=== PATIENT | female | born 2000 | race Caucasian/White ===

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

== ENCOUNTER 2020-07-31 18:32 | Emergency (ER) | payer MEDICAID ==
[2020-07-31 18:38] VITALS: BP 146/91
[2020-07-31] MEDS ORDERED: AMOX/CLAV 875 MG/125 MG TABLET PO STA (18:42)
--- NOTE | 2020-07-31 18:46 | ED Physician Documentation ---
PD HPI WOUND RECHECK - Stated complaint Stated Complaint: CAT BITE - LT HAND - Chief complaint Chief Complaint: Wound - Histroy obtained from History obtained from: Patient - Additional information Additional information: 20-year-old right-handed woman is up-to-date on tetanus and was bitten several times by her own fully immunized cat at home about a couple of hours ago. 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 HEENT: Other Psych: None Musculoskeletal: None Derm: None - Past Surgical History Past Surgical History: Yes - Present Medications Home Medications: Ambulatory Orders Medication Instructions Recorded Confirmed Levonorgestrel-Ethin Estradiol 1 each PO 03/27/19 03/27/19 [Setlakin 0.15 mg-0.03 mg Tab] Dicyclomine HCl 10 mg PO Q6H PRN #15 capsule 08/19/19 Diphenoxylate/Atropine [Lomotil] 1 each PO QID PRN #12 tablet 08/19/19 Famotidine 20 mg PO DAILY #15 tablet 08/19/19 Ondansetron Odt [Zofran] 4 mg TL Q6H PRN #10 tablet 08/19/19 Amox/Clav 875/125 [Augmentin] 1 each PO Q12H #14 tablet 07/31/20 - Allergies Allergies/Adverse Reactions: Allergies Allergy/AdvReac Type Severity Reaction Status Date / Time No Known Drug Allergies Allergy Verified 07/31/20 18:36 - Social History Does the pt smoke?: No Smoking Status: Never smoker Does the pt drink ETOH?: No Does the pt have substance abuse?: No - Immunizations Immunizations are current?: Yes - POLST Patient has POLST: No PD ED PE NORMAL - Vitals Vital signs reviewed: Yes - General General: Alert and oriented X 3, No acute distress - Extremities Extremities: Other (She has several puncture wounds near the left first MCP and proximal phalanx without bony tenderness or limited range of motion.) Results - Vitals Vitals: Vital Signs - 24 hr 07/31/20 18:36 Temperature 36.8 C Heart Rate 70 Respiratory 16 Rate Blood Pressure 146/91 H O2 Saturation 98 Oxygen O2 Source Room air Departure - Departure Disposition: 01 Home, Self Care Clinical Impression: Cat bite Qualifiers: Encounter type: initial encounter Qualified Code(s): W55.01XA - Bitten by cat, initial encounter Condition: Good Record reviewed to determine appropriate education?: Yes Instructions: ED Bite Animal General Prescriptions: Amox/Clav 875/125 [Augmentin] 1 each PO Q12H #14 tablet Comments: Come back for any signs of infection which would include: Redness, swelling, drainage, increased pain, or fevers. You can wash it soap and water. Keep it covered and moist with bacitracin ointment which is available over the counter; avoid neosporin.
== END 2020-07-31 18:52 | disposition home or self-care (01) ==
LOC: ED 18:32
DX: S61.432A Puncture wound without foreign body of left hand, initial encounter (principal); W55.01XA Bitten by cat, initial encounter
CPT/HCPCS: 99282; 99283; A9270

== ENCOUNTER 2020-08-01 12:04 | Emergency (ER) | payer MEDICAID ==
[2020-08-01] MEDS ORDERED: AMOX/CLAV 875 MG/125 MG TABLET PO STA (12:20)
[2020-08-01] MEDS ORDERED: NAPROXEN 250 MG TABLET PO STA (12:20)
--- NOTE | 2020-08-01 12:22 | ED Physician Documentation ---
PD HPI WOUND RECHECK - Stated complaint Stated Complaint: CAT BITE L HAND - Chief complaint Chief Complaint: General - Histroy obtained from History obtained from: Patient - History of Present Illness Location: Left Hand (Patient with a cat bite yesterday and was given a dose of Augmentin here in the ER. She states her pharmacy was closed today and so unable to get the prescription. She did place the physical prescription in the night box so does not still have it. 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 : None HEENT: Other Psych: None Musculoskeletal: None Derm: None - Past Surgical History Past Surgical History: Yes - Present Medications Home Medications: Ambulatory Orders Medication Instructions Recorded Confirmed Levonorgestrel-Ethin Estradiol 1 each PO 03/27/19 03/27/19 [Setlakin 0.15 mg-0.03 mg Tab] Dicyclomine HCl 10 mg PO Q6H PRN #15 capsule 08/19/19 Diphenoxylate/Atropine [Lomotil] 1 each PO QID PRN #12 tablet 08/19/19 Famotidine 20 mg PO DAILY #15 tablet 08/19/19 Ondansetron Odt [Zofran] 4 mg TL Q6H PRN #10 tablet 08/19/19 Amox/Clav 875/125 [Augmentin] 1 each PO Q12H #14 tablet 07/31/20 Amox/Clav 875/125 [Augmentin] 1 each PO Q12H #14 tablet 08/01/20 Naproxen 500 mg PO BID #20 tablet 08/01/20 - Allergies Allergies/Adverse Reactions: Allergies Allergy/AdvReac Type Severity Reaction Status Date / Time No Known Drug Allergies Allergy Verified 08/01/20 12:08 - Social History Does the pt smoke?: No Smoking Status: Never smoker Does the pt drink ETOH?: No Does the pt have substance abuse?: No - Immunizations Immunizations are current?: Yes - POLST Patient has POLST: No PD ED PE NORMAL - Vitals Vital signs reviewed: Yes - General General: Alert and oriented X 3, No acute distress, Well developed/nourished - Derm Derm: Normal color, Warm and dry - Extremities Extremities: Other (The left thenar eminence and the dorsal of the base of the thumb with puncture wounds. The palmar aspect has redness and swelling with a point of whiteness but no underlying fluctuance. There is no tenderness in the forearm. Range of motion of the fingers does not cause pain.) - Neuro Neuro: No motor deficit, No sensory deficit Results - Vitals Vitals: Vital Signs - 24 hr 08/01/20 08/01/20 12:08 12:30 Temperature 36.8 C 36.9 C Heart Rate 75 71 Respiratory 20 18 Rate Blood Pressure 149/77 H 141/83 H O2 Saturation 97 100 Oxygen O2 Source Room air PD MEDICAL DECISION MAKING - ED course Complexity details: considered differential (Mild early infection but she was unable to continue her antibiotics as the pharmacy she dropped the prescription that is closed today. I can print a new wound and give her a dose here. No tenosynovitic symptoms.), d/w patient Departure - Departure Disposition: 01 Home, Self Care Clinical Impression: Encounter for wound re-check Cat bite of left hand with infection Qualifiers: Encounter type: subsequent encounter Qualified Code(s): S61.452D - Open bite of left hand, subsequent encounter Condition: Stable Record reviewed to determine appropriate education?: Yes Instructions: ED Bite Cat Prescriptions: Amox/Clav 875/125 [Augmentin] 1 each PO Q12H #14 tablet Naproxen 500 mg PO BID #20 tablet Comments: Warm moist compresses or warm soaks a few times a day to promote blood flow to the area and promote drainage. Continue the Augmentin twice daily for the next week. Add naproxen anti-in flammatory 2-3 times a day. To that add Tylenol if needed for pain. Recheck if not improving over the next couple of days and return if worsening still. Discharge Date/Time: 08/01/20 12:30
[2020-08-01 12:31] VITALS: BP 141/83
== END 2020-08-01 12:30 | disposition home or self-care (01) ==
LOC: ED 12:04
DX: S61.432A Puncture wound without foreign body of left hand, initial encounter (principal); W55.01XA Bitten by cat, initial encounter
CPT/HCPCS: 99282; 99283; A9270

== ENCOUNTER 2020-10-01 18:21 | Emergency (ER) | payer MEDICAID ==
[2020-10-01 18:44] VITALS: BP 169/93
[2020-10-01] MEDS ORDERED: predniSONE 20 MG TABLET PO STA (18:58)
[2020-10-01] MEDS ORDERED: diphenhydrAMINE 25 MG CAPSULE PO STA (18:58)
--- NOTE | 2020-10-01 19:01 | ED Physician Documentation ---
History of Present Illness - Stated complaint Stated Complaint: C+, HIVES - Chief complaint Chief Complaint: Wound - History obtained from History obtained from: Patient - History of Present Illness Timing: Yesterday Pain level max: 0 Pain level now: 0 - Additonal information Additional information: 20-year-old female presents to the emergency department with diffuse urticaria for the past 24 hours. Unclear etiology. No new soaps, detergents, medications, foods, supplements, antibiotics. Nothing makes it better or worse. Has not taken anything for this. 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 HEENT: Other Psych: None Musculoskeletal: None Derm: None - Past Surgical History Past Surgical History: Yes - Present Medications Home Medications: Ambulatory Orders Medication Instructions Recorded Confirmed Levonorgestrel-Ethin Estradiol 1 each PO 03/27/19 03/27/19 [Setlakin 0.15 mg-0.03 mg Tab] Dicyclomine HCl 10 mg PO Q6H PRN #15 capsule 08/19/19 Diphenoxylate/Atropine [Lomotil] 1 each PO QID PRN #12 tablet 08/19/19 Famotidine 20 mg PO DAILY #15 tablet 08/19/19 Ondansetron Odt [Zofran] 4 mg TL Q6H PRN #10 tablet 08/19/19 Amox/Clav 875/125 [Augmentin] 1 each PO Q12H #14 tablet 07/31/20 Amox/Clav 875/125 [Augmentin] 1 each PO Q12H #14 tablet 08/01/20 Naproxen 500 mg PO BID #20 tablet 08/01/20 predniSONE [Deltasone] 10 mg PO [id number] #42 tab 10/01/20 - Allergies Allergies/Adverse Reactions: Allergies Allergy/AdvReac Type Severity Reaction Status Date / Time No Known Drug Allergies Allergy Verified 10/01/20 18:44 - Social History Does the pt smoke?: No Smoking Status: Never smoker Does the pt drink ETOH?: No Does the pt have substance abuse?: No - Immunizations Immunizations are current?: Yes - POLST Patient has POLST: No PD ED PE NORMAL - Vitals Vital signs reviewed: Yes - General General: Alert and oriented X 3, No acute distress - HEENT HEENT: Moist mucous membranes, Pharynx benign - Neck Neck: Supple, no meningeal sign - Cardiac Cardiac: RRR - Respiratory Respiratory: No respiratory distress, Clear bilaterally - Derm Derm: Warm and dry, Other (Diffuse urticaria over the bilateral upper arms and legs. Normal phonation. No trismus. No wheezing. No stridor) - Extremities Extremities: No edema - Neuro Neuro: Alert and oriented X 3 Results - Vitals Vitals: Vital Signs - 24 hr 10/01/20 18:30 Temperature 37.3 C Heart Rate 86 Respiratory 17 Rate Blood Pressure 169/93 H O2 Saturation 98 Oxygen O2 Source Room air PD MEDICAL DECISION MAKING - ED course Complexity details: considered differential, d/w patient ED course: Patient with urticaria of unclear etiology. Will place on Benadryl and steroids for home. We will have her follow-up with her doctor for further care. No evidence of anaphylaxis. Patient counseled regarding signs and symptoms for which I believe and urgent re-evaluation would be necessary. Patient with good understanding of and agreement to plan and is comfortable going home at this time This document was made in part using voice recognition software. While efforts are made to proofread this document, sound alike and grammatical errors may occur. Departure - Departure Disposition: 01 Home, Self Care Clinical Impression: Urticaria Condition: Good Instructions: ED Urticaria Follow-Up: your,doctor in 1 week [Other] Prescriptions: predniSONE [Deltasone] 10 mg PO [id number] #42 tab Comments: Take all steroids until gone. You can also take Benadryl at home for itching. Return if you worsen. The cause of your hives is unclear. Discharge Date/Time: 10/01/20 19:10
== END 2020-10-01 19:10 | disposition home or self-care (01) ==
LOC: ED 18:21
DX: L50.9 Urticaria, unspecified (principal)
CPT/HCPCS: 99282; 99283; A9270; J7512

== ENCOUNTER 2020-12-12 15:07 | Emergency (ER) | payer MEDICAID ==
[2020-12-12] MEDS ORDERED: IBUPROFEN 800 MG TABLET PO STA (15:46)
[2020-12-12] MEDS ORDERED: ONDANSETRON ODT 4 MG TABLET TL STA (15:46)
--- NOTE | 2020-12-12 16:11 | ED Physician Documentation ---
History of Present Illness - Stated complaint Stated Complaint: CHILLS,FEVER - Chief complaint Chief Complaint: Allergic Rx - History obtained from History obtained from: Patient - History of Present Illness Timing: Today Pain level max: 5 Pain level now: 5 - Additonal information Additional information: 20-year-old female presents to the emergency department stating that she received her second vaccination of the Covid vaccination yesterday. Today has body aches and chills. T-max 100.1 at home. Took Tylenol without relief. Did not have any Motrin and so came to the emergency department. Has some nausea. No vomiting. No diarrhea. No constipation. No abdominal pain. No cough. No congestion. No urinary symptoms. Nothing makes it better or worse. Denies any possibility of Review of Systems Ten Systems: 10 systems reviewed and negative Constitutional: reports: Fever, Chills, Myalgias Respiratory: denies: Cough GI: reports: Nausea. 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 HEENT: Other Psych: None Musculoskeletal: None Derm: None - Past Surgical History Past Surgical History: Yes - Present Medications Home Medications: Ambulatory Orders Medication Instructions Recorded Confirmed Levonorgestrel-Ethin Estradiol 1 each PO 03/27/19 03/27/19 [Setlakin 0.15 mg-0.03 mg Tab] Dicyclomine HCl 10 mg PO Q6H PRN #15 capsule 08/19/19 Diphenoxylate/Atropine [Lomotil] 1 each PO QID PRN #12 tablet 08/19/19 Famotidine 20 mg PO DAILY #15 tablet 08/19/19 Ondansetron Odt [Zofran] 4 mg TL Q6H PRN #10 tablet 08/19/19 Amox/Clav 875/125 [Augmentin] 1 each PO Q12H #14 tablet 07/31/20 Amox/Clav 875/125 [Augmentin] 1 each PO Q12H #14 tablet 08/01/20 Naproxen 500 mg PO BID #20 tablet 08/01/20 predniSONE [Deltasone] 10 mg PO [id number] #42 tab 10/01/20 Ibuprofen [Motrin] 800 mg PO Q8H PRN #20 tablet 12/12/20 Ondansetron Odt [Zofran] 4 mg TL Q6H PRN #10 tablet 12/12/20 - Allergies Allergies/Adverse Reactions: Allergies Allergy/AdvReac Type Severity Reaction Status Date / Time mitomycin Allergy Hives Verified 12/12/20 15:18 - Social History Does the pt smoke?: No Smoking Status: Never smoker Does the pt drink ETOH?: No Does the pt have substance abuse?: No - Immunizations Immunizations are current?: Yes - POLST Patient has POLST: No PD ED PE NORMAL - Vitals Vital signs reviewed: Yes - General General: Alert and oriented X 3, No acute distress, Well developed/nourished - HEENT HEENT: Atraumatic, PERRL, Ears normal, Moist mucous membranes - Neck Neck: Supple, no meningeal sign - Cardiac Cardiac: RRR, Strong equal pulses - Respiratory Respiratory: No respiratory distress, Clear bilaterally - Abdomen Abdomen: Soft, Non tender, Non distended - Derm Derm: Warm and dry, No rash - Neuro Neuro: Alert and oriented X 3 - Psych Psych: Normal mood, Normal affect Results - Vitals Vitals: Vital Signs - 24 hr 12/12/20 15:18 Temperature 37.8 C Heart Rate 113 H Respiratory 16 Rate Blood Pressure 108/72 O2 Saturation 98 Oxygen O2 Source Room air PD MEDICAL DECISION MAKING - ED course Complexity details: considered differential, d/w patient ED course: Patient with an immune response to COVID-19 vaccination. No evidence of other infection. Given Motrin and Zofran. Feels better. This should improve within the next 12 to 24 hours. We will have her follow-up with her doctor for further care. Patient counseled regarding signs and symptoms for which I believe and urgent re-evaluation would be necessary. Patient with good understanding of and agreement to plan and is comfortable going home at this time This document was made in part using voice recognition software. While efforts are made to proofread this document, sound alike and grammatical errors may occur. Departure - Departure Disposition: 01 Home, Self Care Clinical Impression: Post-vaccination fever Condition: Good Instructions: ED Fever Unconf Cause Follow-Up: your,doctor in 1 week [Other] Prescriptions: Ibuprofen [Motrin] 800 mg PO Q8H PRN #20 tablet PRN Reason: PAIN &/OR FEVER Ondansetron Odt [Zofran] 4 mg TL Q6H PRN #10 tablet PRN Reason: Nausea / Vomiting Comments: Return if you worsen. Follow up with your doctor further care. This is a normal response to the covid vaccine and means your immune system is working well.
[2020-12-12 16:21] VITALS: BP 130/72
== END 2020-12-12 16:25 | disposition home or self-care (01) ==
LOC: ED 15:07
DX: R50.83 Postvaccination fever (principal); T88.1XXA Other complications following immunization, not elsewhere classified, initial encounter; R11.0 Nausea; T50.Z95A Adverse effect of other vaccines and biological substances, initial encounter; Y84.8 Other medical procedures as the cause of abnormal reaction of the patient, or of later complication, without mention of misadventure at the time of the procedure
CPT/HCPCS: 99282; 99284; A9270; Q0162

== ENCOUNTER 2023-04-25 10:51 | Outpatient (CLI) | payer OTHER ==
--- NOTE | 2023-04-25 14:32 | XRAY Report ---
PROCEDURE: Foot 3 View RT INDICATIONS: SPRAIN OF RIGHT FOOT TECHNIQUE: 3 views of the foot were acquired. COMPARISON: None. FINDINGS: Bones: No fractures or dislocations. No suspicious bony lesions. Skin marker in the region of the base of the fifth metatarsal. Soft tissues: No suspicious soft tissue calcifications or masses. IMPRESSION: No acute osseous abnormality. If symptoms persist follow-up MRI could be considered. Reviewed by: Russ Amos MD on 04/25/2023 2:31 PM PDT Approved by: Russ Amos MD on 04/25/2023 2:31 PM PDT Station ID: [id number]
== END 2023-04-25 10:52 | disposition home or self-care (01) ==
LOC: DI.N 10:51
PROVIDERS: ATTEND Emergency Medicine
DX: S93.691A Other sprain of right foot, initial encounter (principal)